=== PATIENT | male | born 1975 | race Caucasian/White ===

== ENCOUNTER 2020-09-08 04:57 | Inpatient (IN) | payer OTHER ==
[2020-09-05 09:11] VITALS: BMI 25.8
[2020-09-08] MEDS ORDERED: THROMBIN (BOVINE) 5,000 UNIT VIAL TP ONE (07:19)
[2020-09-08] MEDS ORDERED: DEXAMETHASONE SOD PHOSPHATE 4 MG/1 ML VIAL ONE (12:10)
[2020-09-08] MEDS ORDERED: ceFAZolin SODIUM 1 GM VIAL ONE (12:10)
[2020-09-08] MEDS ORDERED: SUCCINYLCHOLINE CHLORIDE 200 MG/10 ML SYRINGE ONE (12:10)
[2020-09-08] MEDS ORDERED: PROPOFOL 20 ML ONE ×8 (12:10→16:02)
[2020-09-08] MEDS ORDERED: LIDOCAINE HCL/PF 2% SDV 5ML VIAL ONE (12:12)
[2020-09-08] MEDS ORDERED: MIDAZOLAM HCL 2 MG/2 ML SINGLE DOSE VIAL ONE (12:45)
[2020-09-08] MEDS ORDERED: fentaNYL CITRATE 250 MCG/5 ML VIAL ONE (12:45)
[2020-09-08] MEDS ORDERED: VANCOMYCIN 1,000 MG VIAL (RESTRICTED TO ID ONLY) ONE (12:51)
[2020-09-08] MEDS ORDERED: ceFAZolin SODIUM 1 GM VIAL IVPB ONE (14:30)
[2020-09-08] MEDS ORDERED: VANCOMYCIN 1,000 MG VIAL (RESTRICTED TO ID ONLY) IVPB ONE (14:35)
[2020-09-08] MEDS ORDERED: KETAMINE HCL 200 MG/20 ML VIAL ONE (14:54)
[2020-09-08] MEDS ORDERED: ROCURONIUM BROMIDE 50 MG/5 ML SYRINGE ONE (15:13)
[2020-09-08] MEDS ORDERED: NEOSTIGMINE METHYLSULFATE 0.5 MG/1 ML - 10 ML MDV ONE (15:45)
[2020-09-08] MEDS ORDERED: HYDROmorphone HCl 2 MG/ML VIAL ONE ×2 (15:58→16:15)
[2020-09-08] MEDS ORDERED: ONDANSETRON 4 MG/2 ML VIAL IVPUSH PRN ×2 (16:35→17:05)
[2020-09-08] MEDS ORDERED: oxyCODONE HCL 5 MG TABLET PO PRN (16:35)
[2020-09-08] MEDS ORDERED: LACTATED RINGERS SOLUTION 1,000 ML IV SCH ×2 (16:45→17:15)
[2020-09-08] MEDS ORDERED: predniSONE 10 MG TABLET (UD) PO SCH (17:00)
[2020-09-08] MEDS ORDERED: ACETAMINOPHEN 1000 MG/100 ML VIAL (NON FORMULARY) IVPB ONE (17:08)
[2020-09-08] MEDS ORDERED: HYDROmorphone *PCA* 10MG/50ML DISP.SYRIN PCA SCH (17:15)
[2020-09-08] MEDS ORDERED: ACETAMINOPHEN INJECTION 100 ML IVPB ONE (17:50)
[2020-09-08] MEDS: oxyCODONE HCL 5 MG TABLET PO PRN (20:33)
[2020-09-08] MEDS ORDERED: MORPHINE SULFATE 2 MG/ML VIAL IVPUSH PRN (20:56)
[2020-09-08] MEDS: CEFAZOLIN 2 GM/D5W 2 GM/50 ML ML IVPB SCH (21:20)
[2020-09-08] MEDS: ATORVASTATIN CA 80 MG TABLET (FP) PO SCH (21:20)
[2020-09-09] MEDS ORDERED: MORPHINE SULFATE 2 MG/ML VIAL IVPUSH ONE (00:06)
[2020-09-09] MEDS: oxyCODONE HCL 5 MG TABLET PO PRN ×4 (06:15→18:43)
[2020-09-09] MEDS: CEFAZOLIN 2 GM/D5W 2 GM/50 ML ML IVPB SCH ×2 (06:15→13:02)
[2020-09-09 06:55] LABS: BASO % 0.1 % (0-2.0); HEMATOCRIT 39.8 % (35.4-49); HEMOGLOBIN 13.2 GM/dL (11.7-16.9); LYMPH % 6.5 % (8-40); MCH 28.9 pg (25.7-33.7); MCHC 33.2 g/dl (32.0-35.9); MEAN PLT VOLUME 8.7 fl (7.5-11.1); MONO % 2.1 % (3.8-10.2); NEUT % 91.3 % (42.8-82.8); PLATELET COUNT 231 K/MM3 (134-434); RBC 4.57 M/mm3 (4.00-5.60); WHITE BLOOD COUNT 11.1 K/mm3 (4.0-10.0)
[2020-09-09] MEDS ORDERED: DEXAMETHASONE SOD PHOSPHATE 10 MG/1 ML VIAL IVPUSH ONE (07:00)
[2020-09-09 07:11] LABS: POTASSIUM 4.4 mmol/L (3.5-5.1)
[2020-09-09 07:19] LABS: CALCIUM 8.8 mg/dL (8.5-10.1)
[2020-09-09 07:20] LABS: ALBUMIN 3.7 g/dl (3.4-5.0); BLOOD UREA NITROGEN 14.4 mg/dL (7-18)
[2020-09-09 07:23] LABS: PHOSPHOROUS 2.8 mg/dL (2.5-4.9)
[2020-09-09 07:25] LABS: TOT PROT 6.8 g/dl (6.4-8.2)
[2020-09-09] MEDS: MORPHINE SULFATE 2 MG/ML VIAL IVPUSH PRN ×3 (07:40→19:24)
[2020-09-09 09:21] LABS: ANISOCYTOSIS 1+; MACROCYTOSIS 1+; PLATELET ESTIMATE NORMAL
[2020-09-09] MEDS: LISINOPRIL 5 MG TABLET PO SCH (09:27)
[2020-09-09] MEDS: metoPROLOL SUCCINATE 25 MG TAB.SR.24H (FP) PO SCH (09:27)
[2020-09-09] MEDS ORDERED: ACETAMINOPHEN 1000 MG/100 ML VIAL (NON FORMULARY) IVPB ONE (15:39)
[2020-09-09] MEDS: ATORVASTATIN CA 80 MG TABLET (FP) PO SCH (21:29)
[2020-09-10] MEDS: oxyCODONE HCL 5 MG TABLET PO PRN ×5 (01:44→21:52)
[2020-09-10 06:50] LABS: BASO % 0.3 % (0-2.0); HEMATOCRIT 37.9 % (35.4-49); HEMOGLOBIN 12.8 GM/dL (11.7-16.9); LYMPH % 6.5 % (8-40); MCH 29.3 pg (25.7-33.7); MCHC 33.7 g/dl (32.0-35.9); MEAN CELL VOLUME 87.1 fl (80-96); MEAN PLT VOLUME 8.7 fl (7.5-11.1); MONO % 6.4 % (3.8-10.2); NEUT % 86.8 % (42.8-82.8); PLATELET COUNT 223 K/MM3 (134-434); RBC 4.35 M/mm3 (4.00-5.60); RDW 13.4 % (11.9-15.9); WHITE BLOOD COUNT 16.1 K/mm3 (4.0-10.0)
[2020-09-10 07:40] LABS: POTASSIUM 4.2 mmol/L (3.5-5.1)
[2020-09-10] MEDS: MORPHINE SULFATE 2 MG/ML VIAL IVPUSH PRN (07:44)
[2020-09-10 07:57] LABS: ALBUMIN 3.6 g/dl (3.4-5.0); BLOOD UREA NITROGEN 16.6 mg/dL (7-18); CALCIUM 8.8 mg/dL (8.5-10.1)
[2020-09-10 07:59] LABS: MAGNESIUM 2.4 mg/dL (1.8-2.4)
[2020-09-10 08:02] LABS: CREATININE 0.9 mg/dL (0.55-1.3); PHOSPHOROUS 3.8 mg/dL (2.5-4.9); TOT PROT 6.5 g/dl (6.4-8.2)
[2020-09-10] MEDS ORDERED: ASPIRIN 81 MG CHEWABLE TABLETS PO SCH (10:00)
[2020-09-10] MEDS ORDERED: PT OWN MED DRAWER 7, Y5N ONE ×2 (10:10→11:44)
[2020-09-10] MEDS: metoPROLOL SUCCINATE 25 MG TAB.SR.24H (FP) PO SCH (10:12)
[2020-09-10] MEDS: LISINOPRIL 5 MG TABLET PO SCH (10:13)
[2020-09-10] MEDS: TICAGRELOR 90 MG TABLET PO SCH ×2 (11:57→21:53)
[2020-09-10] MEDS: predniSONE 10 MG TABLET (UD) PO SCH (11:58)
[2020-09-10] MEDS ORDERED: ACETAMINOPHEN 1000 MG/100 ML VIAL (NON FORMULARY) IVPB ONE (16:48)
[2020-09-10] MEDS ORDERED: ACETAMINOPHEN INJECTION 100 ML IVPB ONE (16:56)
[2020-09-10] MEDS ORDERED: diazePAM 5 MG TABLET PO ONE ×2 (17:06→18:00)
[2020-09-10] MEDS ORDERED: ACETAMINOPHEN 325 MG TABLET (FP) PO PRN ×2 (20:21)
[2020-09-10] MEDS: ATORVASTATIN CA 80 MG TABLET (FP) PO SCH (21:52)
[2020-09-11] MEDS: oxyCODONE HCL 5 MG TABLET PO PRN ×6 (04:49→21:42)
[2020-09-11 07:12] LABS: BASO % 0.2 % (0-2.0); EOS % 0.2 % (0-4.5); HEMATOCRIT 38.9 % (35.4-49); LYMPH % 22.6 % (8-40); MCH 29.8 pg (25.7-33.7); MCHC 33.5 g/dl (32.0-35.9); MEAN PLT VOLUME 8.9 fl (7.5-11.1); MONO % 10.1 % (3.8-10.2); NEUT % 66.9 % (42.8-82.8); PLATELET COUNT 217 K/MM3 (134-434); RBC 4.37 M/mm3 (4.00-5.60); RDW 13.4 % (11.9-15.9); WHITE BLOOD COUNT 10.4 K/mm3 (4.0-10.0)
[2020-09-11 07:28] LABS: POTASSIUM 3.9 mmol/L (3.5-5.1)
[2020-09-11 07:41] LABS: BLOOD UREA NITROGEN 16.4 mg/dL (7-18); CALCIUM 8.8 mg/dL (8.5-10.1)
[2020-09-11 07:42] LABS: MAGNESIUM 2.3 mg/dL (1.8-2.4)
[2020-09-11 07:45] LABS: CREATININE 0.9 mg/dL (0.55-1.3); PHOSPHOROUS 3.6 mg/dL (2.5-4.9)
[2020-09-11] MEDS: predniSONE 10 MG TABLET (UD) PO SCH (08:59)
[2020-09-11] MEDS: TICAGRELOR 90 MG TABLET PO SCH ×2 (08:59→21:44)
[2020-09-11] MEDS: LISINOPRIL 5 MG TABLET PO SCH (08:59)
[2020-09-11] MEDS: metoPROLOL SUCCINATE 25 MG TAB.SR.24H (FP) PO SCH (08:59)
[2020-09-11] MEDS ORDERED: ASPIRIN 81 MG CHEWABLE TABLETS PO SCH (10:00)
[2020-09-11] MEDS ORDERED: oxyCODONE HCL 5 MG TABLET PO PRN (11:43)
[2020-09-11] MEDS ORDERED: oxyCODONE HCL 5 MG TABLET ONE (11:53)
[2020-09-11] MEDS ORDERED: ACETAMINOPHEN INJECTION 100 ML IVPB ONE (11:53)
[2020-09-11] MEDS: ACETAMINOPHEN 1000 MG/100 ML VIAL (NON FORMULARY) IVPB PRN ×2 (12:05→17:56)
[2020-09-11] MEDS ORDERED: ONDANSETRON 4 MG/2 ML VIAL IVPUSH PRN (21:19)
[2020-09-11] MEDS ORDERED: PT OWN MED DRAWER 7, Y5N ONE (21:40)
[2020-09-11] MEDS: ACETAMINOPHEN 325 MG TABLET (FP) PO PRN (21:43)
[2020-09-11] MEDS: ATORVASTATIN CA 80 MG TABLET (FP) PO SCH (21:44)
[2020-09-12] MEDS: oxyCODONE HCL 5 MG TABLET PO PRN ×6 (06:27→23:42)
[2020-09-12] MEDS: ACETAMINOPHEN 325 MG TABLET (FP) PO PRN ×3 (06:28→23:43)
[2020-09-12 07:47] LABS: INR 1.03 (0.83-1.09); PROTHROMBIN TIME (PATIENT) 12.6 SEC (9.7-13.0)
[2020-09-12 07:48] LABS: BASO % 0.2 % (0-2.0); EOS % 0.7 % (0-4.5); HEMATOCRIT 40.6 % (35.4-49); HEMOGLOBIN 13.3 GM/dL (11.7-16.9); LYMPH % 19.2 % (8-40); MCHC 32.7 g/dl (32.0-35.9); MEAN CELL VOLUME 88.5 fl (80-96); MEAN PLT VOLUME 8.6 fl (7.5-11.1); MONO % 8.9 % (3.8-10.2); PLATELET COUNT 241 K/MM3 (134-434); RBC 4.58 M/mm3 (4.00-5.60); RDW 13.3 % (11.9-15.9)
[2020-09-12 08:03] LABS: ALBUMIN 3.8 g/dl (3.4-5.0); BLOOD UREA NITROGEN 15.2 mg/dL (7-18); CALCIUM 8.9 mg/dL (8.5-10.1); MAGNESIUM 2.3 mg/dL (1.8-2.4)
[2020-09-12 08:05] LABS: POTASSIUM 3.9 mmol/L (3.5-5.1)
[2020-09-12 08:09] LABS: BILIRUBIN,TOTAL 1.2 mg/dL (0.2-1); TOT PROT 6.4 g/dl (6.4-8.2)
[2020-09-12] MEDS ORDERED: PT OWN MED DRAWER 7, Y5N ONE ×2 (09:31→20:14)
[2020-09-12] MEDS: LISINOPRIL 5 MG TABLET PO SCH (09:33)
[2020-09-12] MEDS: metoPROLOL SUCCINATE 25 MG TAB.SR.24H (FP) PO SCH (09:34)
[2020-09-12] MEDS: TICAGRELOR 90 MG TABLET PO SCH ×2 (09:34→21:28)
[2020-09-12] MEDS: predniSONE 10 MG TABLET (UD) PO SCH (09:34)
[2020-09-12] MEDS: ASPIRIN 81 MG CHEWABLE TABLETS PO SCH (09:52)
[2020-09-12] MEDS: ATORVASTATIN CA 80 MG TABLET (FP) PO SCH (21:27)
[2020-09-13] MEDS: oxyCODONE HCL 5 MG TABLET PO PRN ×5 (06:43→19:57)
[2020-09-13] MEDS: ACETAMINOPHEN 325 MG TABLET (FP) PO PRN ×2 (06:44→19:58)
[2020-09-13 08:30] LABS: BASO % 0.2 % (0-2.0); EOS % 0.4 % (0-4.5); HEMOGLOBIN 14.3 GM/dL (11.7-16.9); LYMPH % 17.5 % (8-40); MCH 29.9 pg (25.7-33.7); MCHC 34.1 g/dl (32.0-35.9); MEAN CELL VOLUME 87.7 fl (80-96); MEAN PLT VOLUME 8.8 fl (7.5-11.1); MONO % 9.1 % (3.8-10.2); NEUT % 72.8 % (42.8-82.8); PLATELET COUNT 274 K/MM3 (134-434); RBC 4.79 M/mm3 (4.00-5.60); WHITE BLOOD COUNT 10.6 K/mm3 (4.0-10.0)
[2020-09-13 08:47] LABS: CALCIUM 9.6 mg/dL (8.5-10.1)
[2020-09-13 08:49] LABS: ALBUMIN 3.9 g/dl (3.4-5.0); BLOOD UREA NITROGEN 15.3 mg/dL (7-18); MAGNESIUM 2.3 mg/dL (1.8-2.4)
[2020-09-13 08:50] LABS: CREATININE 0.9 mg/dL (0.55-1.3)
[2020-09-13 08:53] LABS: BILIRUBIN,TOTAL 1.2 mg/dL (0.2-1); TOT PROT 7.1 g/dl (6.4-8.2)
[2020-09-13] MEDS: LISINOPRIL 5 MG TABLET PO SCH (09:31)
[2020-09-13] MEDS: metoPROLOL SUCCINATE 25 MG TAB.SR.24H (FP) PO SCH (09:31)
[2020-09-13] MEDS: ASPIRIN 81 MG CHEWABLE TABLETS PO SCH (09:31)
[2020-09-13] MEDS ORDERED: PT OWN MED DRAWER 7, Y5N ONE ×2 (09:36→21:35)
[2020-09-13] MEDS: predniSONE 10 MG TABLET (UD) PO SCH (09:49)
[2020-09-13] MEDS: TICAGRELOR 90 MG TABLET PO SCH ×2 (09:49→21:37)
[2020-09-13] MEDS: ACETAMINOPHEN 1000 MG/100 ML VIAL (NON FORMULARY) IVPB PRN ×2 (15:27→23:10)
[2020-09-13] MEDS ORDERED: oxyCODONE HCL 5 MG TABLET PO PRN (17:07)
[2020-09-13] MEDS: DOCUSATE SODIUM 100 MG CAPSULE (FP) PO SCH (21:37)
[2020-09-13] MEDS: ATORVASTATIN CA 80 MG TABLET (FP) PO SCH (21:37)
[2020-09-14] MEDS: oxyCODONE HCL 5 MG TABLET PO PRN ×5 (02:50→22:53)
[2020-09-14] MEDS: ACETAMINOPHEN 325 MG TABLET (FP) PO PRN ×2 (02:51→07:32)
[2020-09-14 08:20] LABS: BASO % 0.2 % (0-2.0); EOS % 1.2 % (0-4.5); HEMATOCRIT 42.5 % (35.4-49); HEMOGLOBIN 14.5 GM/dL (11.7-16.9); LYMPH % 26.6 % (8-40); MCH 29.8 pg (25.7-33.7); MEAN CELL VOLUME 87.6 fl (80-96); MEAN PLT VOLUME 8.5 fl (7.5-11.1); MONO % 9.1 % (3.8-10.2); NEUT % 62.9 % (42.8-82.8); PLATELET COUNT 289 K/MM3 (134-434); RBC 4.84 M/mm3 (4.00-5.60); WHITE BLOOD COUNT 10.5 K/mm3 (4.0-10.0)
[2020-09-14 08:36] LABS: POTASSIUM 4.1 mmol/L (3.5-5.1)
[2020-09-14 08:41] LABS: ALBUMIN 3.6 g/dl (3.4-5.0); BLOOD UREA NITROGEN 17.5 mg/dL (7-18); MAGNESIUM 2.3 mg/dL (1.8-2.4)
[2020-09-14 08:44] LABS: CREATININE 0.9 mg/dL (0.55-1.3)
[2020-09-14 08:46] LABS: BILIRUBIN,TOTAL 0.9 mg/dL (0.2-1); TOT PROT 6.8 g/dl (6.4-8.2)
[2020-09-14] MEDS: metoPROLOL SUCCINATE 25 MG TAB.SR.24H (FP) PO SCH (09:13)
[2020-09-14] MEDS: ASPIRIN 81 MG CHEWABLE TABLETS PO SCH (09:13)
[2020-09-14] MEDS: TICAGRELOR 90 MG TABLET PO SCH ×2 (09:13→21:14)
[2020-09-14] MEDS: LISINOPRIL 5 MG TABLET PO SCH (09:13)
[2020-09-14] MEDS: oxyCODONE HCL 10 MG SUSTAINED ACTING TABLET PO SCH ×2 (10:11→21:14)
[2020-09-14] MEDS ORDERED: PT OWN MED DRAWER 7, Y5N ONE (20:56)
[2020-09-14] MEDS: DOCUSATE SODIUM 100 MG CAPSULE (FP) PO SCH (21:11)
[2020-09-14] MEDS: ATORVASTATIN CA 80 MG TABLET (FP) PO SCH (21:14)
[2020-09-15] MEDS: oxyCODONE HCL 5 MG TABLET PO PRN ×5 (03:08→20:29)
[2020-09-15 07:42] LABS: POTASSIUM 4.7 mmol/L (3.5-5.1)
[2020-09-15 07:44] LABS: EOS % 0.6 % (0-4.5); HEMATOCRIT 45.1 % (35.4-49); HEMOGLOBIN 15.2 GM/dL (11.7-16.9); LYMPH % 11.1 % (8-40); MCH 29.7 pg (25.7-33.7); MCHC 33.6 g/dl (32.0-35.9); MEAN CELL VOLUME 88.2 fl (80-96); MEAN PLT VOLUME 8.6 fl (7.5-11.1); MONO % 4.7 % (3.8-10.2); NEUT % 82.6 % (42.8-82.8); PLATELET COUNT 320 K/MM3 (134-434); RBC 5.11 M/mm3 (4.00-5.60); RDW 13.1 % (11.9-15.9); WHITE BLOOD COUNT 12.6 K/mm3 (4.0-10.0)
[2020-09-15 07:48] LABS: BLOOD UREA NITROGEN 18.8 mg/dL (7-18); CALCIUM 9.1 mg/dL (8.5-10.1); MAGNESIUM 2.3 mg/dL (1.8-2.4)
[2020-09-15 07:53] LABS: BILIRUBIN,TOTAL 0.7 mg/dL (0.2-1); TOT PROT 7.2 g/dl (6.4-8.2)
[2020-09-15 09:30] LABS: ANISOCYTOSIS 1+; MACROCYTOSIS 0; PLATELET ESTIMATE NORMAL
[2020-09-15] MEDS: ASPIRIN 81 MG CHEWABLE TABLETS PO SCH (09:31)
[2020-09-15] MEDS: TICAGRELOR 90 MG TABLET PO SCH ×2 (09:31→21:17)
[2020-09-15] MEDS: LISINOPRIL 5 MG TABLET PO SCH (09:32)
[2020-09-15] MEDS: metoPROLOL SUCCINATE 25 MG TAB.SR.24H (FP) PO SCH (09:32)
[2020-09-15] MEDS: oxyCODONE HCL 10 MG SUSTAINED ACTING TABLET PO SCH (09:58)
[2020-09-15] MEDS: POLYETHYLENE GLYCOL 3350 119 GM BTL PO SCH (09:59)
[2020-09-15] MEDS: ACETAMINOPHEN 325 MG TABLET (FP) PO PRN ×3 (12:14→20:30)
[2020-09-15] MEDS ORDERED: PT OWN MED DRAWER 7, Y5N ONE (21:13)
[2020-09-15] MEDS: ATORVASTATIN CA 80 MG TABLET (FP) PO SCH (21:17)
[2020-09-15] MEDS: DOCUSATE SODIUM 100 MG CAPSULE (FP) PO SCH (21:17)
[2020-09-16] MEDS: oxyCODONE HCL 5 MG TABLET PO PRN ×5 (00:49→22:35)
[2020-09-16] MEDS: ACETAMINOPHEN 325 MG TABLET (FP) PO PRN ×5 (00:50→22:34)
[2020-09-16 09:02] LABS: BASO % 0.2 % (0-2.0); EOS % 3.3 % (0-4.5); HEMATOCRIT 42.9 % (35.4-49); HEMOGLOBIN 14.6 GM/dL (11.7-16.9); MCHC 33.9 g/dl (32.0-35.9); MEAN CELL VOLUME 88.5 fl (80-96); MEAN PLT VOLUME 8.4 fl (7.5-11.1); MONO % 9.8 % (3.8-10.2); NEUT % 50.7 % (42.8-82.8); PLATELET COUNT 304 K/MM3 (134-434); RBC 4.85 M/mm3 (4.00-5.60); RDW 13.3 % (11.9-15.9); WHITE BLOOD COUNT 11.3 K/mm3 (4.0-10.0)
[2020-09-16 09:10] LABS: POTASSIUM 4.2 mmol/L (3.5-5.1)
[2020-09-16 09:12] LABS: CALCIUM 8.9 mg/dL (8.5-10.1)
[2020-09-16 09:13] LABS: ALBUMIN 3.6 g/dl (3.4-5.0); BLOOD UREA NITROGEN 19.6 mg/dL (7-18); MAGNESIUM 2.3 mg/dL (1.8-2.4)
[2020-09-16 09:17] LABS: BILIRUBIN,TOTAL 0.6 mg/dL (0.2-1)
[2020-09-16 09:18] LABS: TOT PROT 6.5 g/dl (6.4-8.2)
[2020-09-16] MEDS ORDERED: PT OWN MED DRAWER 7, Y5N ONE (10:13)
[2020-09-16] MEDS: ASPIRIN 81 MG CHEWABLE TABLETS PO SCH (10:14)
[2020-09-16] MEDS: LISINOPRIL 5 MG TABLET PO SCH (10:15)
[2020-09-16] MEDS: metoPROLOL SUCCINATE 25 MG TAB.SR.24H (FP) PO SCH (10:15)
[2020-09-16] MEDS: TICAGRELOR 90 MG TABLET PO SCH ×2 (10:15→21:37)
[2020-09-16] MEDS: POLYETHYLENE GLYCOL 3350 119 GM BTL PO SCH (10:17)
[2020-09-16] MEDS: oxyCODONE HCL 10 MG SUSTAINED ACTING TABLET PO SCH ×2 (13:26→21:37)
[2020-09-16] MEDS: DOCUSATE SODIUM 100 MG CAPSULE (FP) PO SCH (21:36)
[2020-09-16] MEDS: ATORVASTATIN CA 80 MG TABLET (FP) PO SCH (21:36)
[2020-09-17] MEDS: oxyCODONE HCL 5 MG TABLET PO PRN ×5 (02:42→23:15)
[2020-09-17] MEDS: ACETAMINOPHEN 325 MG TABLET (FP) PO PRN ×5 (02:42→23:16)
[2020-09-17] MEDS ORDERED: PT OWN MED DRAWER 7, Y5N ONE ×3 (09:24→22:13)
[2020-09-17] MEDS: LISINOPRIL 5 MG TABLET PO SCH (09:26)
[2020-09-17] MEDS: oxyCODONE HCL 10 MG SUSTAINED ACTING TABLET PO SCH ×2 (09:26→22:15)
[2020-09-17] MEDS: POLYETHYLENE GLYCOL 3350 119 GM BTL PO SCH (09:26)
[2020-09-17] MEDS: ASPIRIN 81 MG CHEWABLE TABLETS PO SCH (09:26)
[2020-09-17] MEDS: metoPROLOL SUCCINATE 25 MG TAB.SR.24H (FP) PO SCH (09:27)
[2020-09-17] MEDS: TICAGRELOR 90 MG TABLET PO SCH ×2 (11:16→22:14)
[2020-09-17] MEDS: ATORVASTATIN CA 80 MG TABLET (FP) PO SCH (22:15)
[2020-09-17] MEDS: DOCUSATE SODIUM 100 MG CAPSULE (FP) PO SCH (22:16)
[2020-09-18 06:50] VITALS: BP 130/71; PULSE 71; TEMP 97.9
[2020-09-18] MEDS: ACETAMINOPHEN 325 MG TABLET (FP) PO PRN (07:15)
[2020-09-18] MEDS: oxyCODONE HCL 5 MG TABLET PO PRN (07:15)
[2020-09-18] MEDS ORDERED: PT OWN MED DRAWER 7, Y5N ONE (09:48)
[2020-09-18] MEDS: metoPROLOL SUCCINATE 25 MG TAB.SR.24H (FP) PO SCH (09:49)
[2020-09-18] MEDS: TICAGRELOR 90 MG TABLET PO SCH (09:49)
[2020-09-18] MEDS: LISINOPRIL 5 MG TABLET PO SCH (09:49)
[2020-09-18] MEDS: oxyCODONE HCL 10 MG SUSTAINED ACTING TABLET PO SCH (09:50)
[2020-09-18] MEDS: ASPIRIN 81 MG CHEWABLE TABLETS PO SCH (09:50)
[2020-09-18] MEDS: POLYETHYLENE GLYCOL 3350 119 GM BTL PO SCH (09:50)
== END 2020-09-18 10:50 | disposition home health service (06) | DRG 472 ==
LOC: J2C 04:57 → JICU 20:08 → J8W 09-11 19:06
PROVIDERS: ADMIT Orthopaedic Surgery Orthopaedic Surgery of the Spine; ATTEND Nurse Practitioner Family
PROC: 0RP104Z Removal of Internal Fixation Device from Cervical Vertebral Joint, Open Approach (ICD-10-PCS; 2020-09-08)
PROC: 0RT30ZZ Resection of Cervical Vertebral Disc, Open Approach (ICD-10-PCS; 2020-09-08)
PROC: 0PS304Z Reposition Cervical Vertebra with Internal Fixation Device, Open Approach (ICD-10-PCS; 2020-09-08)
PROC: 0PB30ZZ Excision of Cervical Vertebra, Open Approach (ICD-10-PCS; 2020-09-08)
PROC: B01BZZZ Fluoroscopy of Spinal Cord (ICD-10-PCS; 2020-09-08)
PROC: 4A11X4G Monitoring of Peripheral Nervous Electrical Activity, Intraoperative, External Approach (ICD-10-PCS; 2020-09-08)
PROC: 0RG10A0 Fusion of Cervical Vertebral Joint with Interbody Fusion Device, Anterior Approach, Anterior Column, Open Approach (ICD-10-PCS; principal; 2020-09-08 11:20)
DX: M50.20 Other cervical disc displacement, unspecified cervical region (principal); M47.12 Other spondylosis with myelopathy, cervical region; I25.10 Atherosclerotic heart disease of native coronary artery without angina pectoris; F41.9 Anxiety disorder, unspecified; G89.18 Other acute postprocedural pain; R13.10 Dysphagia, unspecified; I10 Essential (primary) hypertension; Z95.5 Presence of coronary angioplasty implant and graft
CPT/HCPCS: 36415; 72050-TC-FY; 76000-TC-FY; 80048; 80053; 82550; 83735; 84100; 84484; 85025; 85610; 86850; 86900; 86901; 86922; 88300-TC; 88304-TC; 93005; 93010; 94010; 94760; 97116-GP; 97162-GP; J0131; J1100